=== PATIENT | male | born 1985 | race Caucasian/White ===

== ENCOUNTER 2020-11-18 02:56 | Emergency (ER) | payer OTHER, SELFPAY ==
[2020-11-18 03:25] VITALS: BP 152/103; PULSE 108; RESP 16; O2SAT 98; BMI 31.3
[2020-11-18 03:51] LABS: Basophils Percent Auto 0.4 % (0-2); Eosinophils Absolute Auto 0.2 X10*3/uL (0.0-0.4); Eosinophils Percent Auto 2.1 % (0-4); Hematocrit 44.1 % (42-52); Hemoglobin 14.5 g/dl (14.0-18.0); Imm Gran Abs Auto 0.02 X10*3/uL (0.00-0.03); Imm Gran Pct Auto 0.2 % (0.0-0.4); Lymphocytes Absolute Auto 2.5 X10*3/uL (1.2-4.9); Lymphocytes Percent Auto 29.1 % (20-40); MANUAL DIFF FLAG NO; Mean Corpuscular HGB Conc 32.9 g/dl (31.0-36.0); Mean Corpuscular Hemoglobin 28.4 pg (27.0-33.0); Mean Corpuscular Volume 86.5 fL (80-98); Mean Platelet Volume 10.3 fL (9.4-12.4); Monocytes Absolute Auto 0.7 X10*3/uL (0.1-1.2); Monocytes Percent Auto 8.7 % (2-11); Neutrophils Absolute Auto 5.1 X10*3/uL (2.0-8.3); Neutrophils Percent Auto 59.5 % (45-73); Platelet Count 257 X10*3/uL (160-400); Red Cell Distribution Width 13.5 % (11.0-16.0); White Blood Count 8.5 X10*3/uL (4.8-10.8)
[2020-11-18 04:00] VITALS: RESP 16
--- NOTE | 2020-11-18 04:56 | ED_ITS ---
HPI - General Adult General Chief complaint: Abdominal Pain Stated complaint: UPPER ABD PAIN Time Seen by Provider: 11/18/20 04:56 Source: patient Mode of arrival: ambulatory History of Present Illness HPI narrative: This is a 34-year-old male who presents with concerns regarding some observed asymmetry to his right upper quadrant when compared to the left that has not been associated with any pain, nausea, fevers, chills, diarrhea, urinary pain/burning/frequency. Patient states that he noticed it when he he placed his hand across his abdomen and felt that there was a size difference. Related Data Allergies Allergy/AdvReac Type Severity Reaction Status Date / Time pollen extracts [POLLEN] Allergy Unknown STUFFY NOSE Unverified 08/05/20 17:18 SEAFOOD Allergy Unknown THROAT Uncoded 08/05/20 17:18 ITCHY - DIFF BREATHING Review of Systems Review of Systems: Pertinent positives and negatives as stated in HPI 10 point review systems is otherwise negative. PMFSH Past Medical History Source: nursing notes reviewed Medical History No known health problems Surgical History H/O oral surgery Social History Social History Alcohol intake: never Smoking Status: Never smoker Use of substances other than those prescribed or required for medical reasons: No Advance Directives: No Physical Exam Vital Signs: Vital Signs: Last Vital Signs Pulse 108 H 11/18/20 03:25 Resp 16 11/18/20 04:00 BP 152/103 H 11/18/20 03:25 Pulse Ox 98 11/18/20 03:25 Body Mass Index 31.3 VITAL SIGNS: Reviewed. GENERAL: Well developed, well nourished, in no acute distress. NECK: Supple, no adenopathy LUNGS: Normal breath sounds. No adventitious sounds or accessory muscle use. SpO2<98> CARDIOVASCULAR: Regular rate and rhythm without noted murmurs, no JVD or lower extremity edema. ABDOMEN: Soft, non-tender, non-distended with bowel sounds. No noted swelling difference, and multiple attempts to elicit evidence of underlying hernia were u nsuccessful and patient exhibited no pain on palpation or with this maneuver. There is no erythema, induration, or crepitus noted in the right upper quadrant area as identified by the patient NEUROLOGIC: Alert and oriented x 4. Course Course Course Narrative: This is a 34-year-old male with history and clinical presentation without concerns for soft tissue mass. Patient is declining lab draw at this time but the Hematology the results are without acute findings. In addition, KUB was negative for any evidence obstructive pattern. All results and findings were discussed with patient at bedside. Medical Decision Making Lab Data Result diagrams: 11/18/20 03:46 11/18/20 05:48 Labs: Lab Results 11/18/20 11/18/20 Range/Units 03:46 03:46 WBC 8.5 (4.8-10.8) X10*3/uL RBC 5.10 (4.60-5.80) X10*6/uL Hgb 14.5 (14.0-18.0) g/dl Hct 44.1 (42-52) % MCV 86.5 (80-98) fL MCH 28.4 (27.0-33.0) pg MCHC 32.9 (31.0-36.0) g/dl RDW 13.5 (11.0-16.0) % Plt Count 257 (160-400) X10*3/uL MPV 10.3 (9.4-12.4) fL Immature Gran % (Auto) 0.2 (0.0-0.4) % Neut % (Auto) 59.5 (45-73) % Lymph % (Auto) 29.1 (20-40) % [place] % (Auto) 8.7 (2-11) % Eos % (Auto) 2.1 (0-4) % Baso % (Auto) 0.4 (0-2) % Lymph # (Auto) 2.5 (1.2-4.9) X10*3/uL [place] # (Auto) 0.7 (0.1-1.2) X10*3/uL Eos # (Auto) 0.2 (0.0-0.4) X10*3/uL Baso # (Auto) 0.0 (0.0-0.2) X10*3/uL Abs Immat Gran (auto) 0.02 (0.00-0.03) X10*3/uL Absolute Neuts (auto) 5.1 (2.0-8.3) X10*3/uL Absolute Nucleated RBC 0.000 (0.0-0.012) X10*3/uL Nucleated RBC % (auto) 0.0 (0.0-0.2) /100WBC Sodium Cancelled Potassium Cancelled Chloride Cancelled Carbon Dioxide Cancelled Anion Gap Cancelled BUN Cancelled Creatinine Cancelled Estim Creat Clear Calc Cancelled Estimated GFR Cancelled Random Glucose Cancelled Calcium Cancelled Total Bilirubin Cancelled Direct Bilirubin Cancelled AST Cancelled ALT Cancelled Alkaline Phosphatase Cancelled Total Protein Cancelled Albumin Cancelled Lipase Cancelled Discharge Plan Discharge Clinical Impression: Soft tissue swelling Patient Disposition: Home, Self-Care Instructions: Soft Tissue Mass (ED) Additional Instructions: Please follow-up with your primary care provider by calling the office this morning and setting up an appointment for further evaluation.
--- NOTE | 2020-11-18 05:17 | XR_ITS ---
EXAMINATION: XR ABDOMEN KUB CLINICAL INDICATION: Abdominal discomfort. Question constipation. COMPARISON: None TECHNIQUE: AP view of the abdomen. FINDINGS: There is a nonobstructive bowel gas pattern. Scattered gas and stool throughout the colon with mild stool burden. The lung bases are clear. No acute osseous abnormality. No suspicious calcification. XR/XR KUB IMPRESSION: Mild colonic stool burden.
[2020-11-18 06:21] LABS: Alanine Aminotransferase 47 U/L (0-40); Alkaline Phosphatase 58 U/L (39-117); Anion Gap 16 (12-20); Aspartate Amino Transferase 29 U/L (5-37); Bilirubin Direct 0.3 mg/dL (0.0-0.5); Bilirubin Total 0.9 mg/dL (0.0-1.0); Blood Urea Nitrogen 17 mg/dL (9-16); Calcium 9.4 mg/dL (8.4-10.2); Carbon Dioxide 23 mmol/L (22-29); Chloride 105 mmol/L (96-108); Creatinine Clr Calc Pharmacy 108.5; Estimated Glomerular Filt Rate > 60; Glucose Random 101 mg/dL (60-115); Lipase 50 U/L (8-78); Potassium 4.2 mmol/l (3.3-5.1); Sodium 140 mmol/L (135-145)
== END 2020-11-18 06:24 | disposition home or self-care (01) ==
PROVIDERS: Emergency Provider Student in an Organized Health Care Education/Training Program
DX: R10.11 Right upper quadrant pain (principal)
CPT/HCPCS: 36415; 74018; 80053; 80076; 82248; 83690; 85025; 99283; 99284

== ENCOUNTER 2021-01-05 07:59 | Outpatient (REF) | payer OTHER, SELFPAY ==
--- NOTE | ~2021-01-05 | US_ITS ---
EXAMINATION: US ABDOMEN COMPLETE CLINICAL INFORMATION: Right upper quadrant pain. Patient indicates area of swelling or lump in the subxiphoid right upper quadrant abdominal wall. COMPARISON: XR KUB1. TECHNIQUE: Real-time imaging of the abdominal viscera. FINDINGS: PANCREAS: Normal. ABDOMINAL AORTA: The proximal, mid, and distal segments are normal in caliber. INFERIOR VENA CAVA: Visualized portions are normal. LIVER: Liver echotexture is increased probably representing fatty infiltration. There are hypoechoic areas adjacent to the gallbladder and in the periportal region, characteristic location for focal fatty sparing. No other focal liver lesion is seen. The liver is normal in size and contour. There is no biliary duct dilatation. GALLBLADDER: There is a small 1 mm echogenic density in the gallbladder questionable for small gallstone or polyp. The gallbladder is normal in size. The gallbladder wall is normal. There is no pericholecystic fluid. COMMON BILE DUCT: Normal in caliber measuring 0.37 cm in diameter. RIGHT KIDNEY: Normal. No hydronephrosis. No renal calculi or focal parenchymal lesions. The kidney measures 11.0 cm in maximum dimension. LEFT KIDNEY: Normal. No hydronephrosis. No renal calculi or focal parenchymal lesions. The kidney measures 10.3 cm in maximum dimension. SPLEEN: Normal. The spleen measures 9.6 cm in maximum dimension. FREE FLUID: None. Limited evaluation of the subxiphoid abdominal wall in the right upper quadrant is unremarkable, image 96. US/US abdomen complete IMPRESSION: Echogenic liver suggestive of fatty infiltration. Question tiny 1 mm gallstone versus polyp. Otherwise unremarkable exam.
== END 2021-01-05 08:00 | disposition home or self-care (01) ==
LOC: HO.US 07:59
PROVIDERS: PCP Nurse Practitioner Family; Visit Provider Nurse Practitioner Family
DX: R10.11 Right upper quadrant pain (principal)
CPT/HCPCS: 76700

== ENCOUNTER 2021-09-03 11:18 | Emergency (ER) | payer OTHER, SELFPAY ==
[2021-09-03 11:59] VITALS: BP 125/93; PULSE 63; RESP 18; TEMP 36.4; O2SAT 99; BMI 29.7
--- NOTE | 2021-09-03 12:44 | ED_ITS ---
HPI - Dental/Oral General Chief complaint: Dental/Oral Stated complaint: DENTAL PAIN Time Seen by Provider: 09/03/21 12:27 Source: patient Mode of arrival: ambulatory History of Present Illness HPI Narrative: 35-year-old male with a past medical history of right lower cracked molar presenting to the ED complaining of suspected infection with pain x1 week noted to area. Admits has a dental appointment on 09/21 however pain is persistent/unbearable. Reports pain radiates to right ear/right neck. Denies intraoral swelling, pus drainage, fever, chills, drooling, inability to swallow/difficulty swallowing Related Data Home Medications Medication Instructions Recorded Confirmed buprenorphine 4 mg-naloxone 1 mg 1 film SUBLINGUAL TID ea 12/13/20 sublingual film (Suboxone) ibuprofen 600 mg tablet 600 mg PO ONCE PRN tab 12/13/20 Previous Rx's Medication Instructions Recorded amoxicillin 875 mg-potassium 1 tab PO Q12H 7 Days #14 tab 09/03/21 clavulanate 125 mg tablet (Augmentin) ibuprofen 800 mg tablet 800 mg PO Q8H PRN #20 tab 09/03/21 Allergies Allergy/AdvReac Type Severity Reaction Status Date / Time pollen extracts [POLLEN] Allergy Unknown STUFFY NOSE Unverified 08/05/20 17:18 SEAFOOD Allergy Unknown THROAT Uncoded 08/05/20 17:18 ITCHY - DIFF BREATHING Review of Systems Review of Systems: Constitutional: No Weight loss, No Fever, No Chills ENT/Mouth: No Ear Pain, No Hoarseness, No sore throat, No Swallowing Difficulty, +dental pain Cardiovascular: No Chest Pain, No SOB Respiratory: No Cough Gastrointestinal: No Nausea, No Vomiting, No Diarrhea, No Constipation, No Abdominal pain Genitourinary: No Dysuria, No Urinary Frequency, No Hematuria, No Flank Pain Musculoskeletal: No joint pain, No Myalgias, No Joint Swelling Skin: No Skin Lesions, No rash Neuro: No Weakness, No Numbness, No Paresthesias PMFSH Past Medical History Attestation statement: The following information was validated with the patient. Medical History (Updated 09/03/21 @ 12:45 by NELLIE Orr) No known health problems Right upper quadrant pain Surgical History H/O oral surgery Hx of excision of epidermal inclusion cyst Family History Family History Father No problems noted. Mother No problems noted. Social History Social History Alcohol intake: never Advance Directives: No Advance Directives Information Provided: No Physical Exam Vital Signs: Vital Signs: Last Vital Signs Temp 97.5 F 09/03/21 11:59 Pulse 63 09/03/21 11:59 Resp 18 09/03/21 11:59 BP 125/93 H 09/03/21 11:59 Pulse Ox 99 09/03/21 11:59 Body Mass Index 29.7 Const: General: cooperative, healthy appearing and no acute distress Orientation/consciousness: patient oriented x3 Limitations: no limitations HENMT: Other: Right posterior molar cracked with surrounding gingivitis. No fluctuance/induration or evidence of abscess. Head: Yes normal to inspection Ears: hearing grossly normal bilaterally, external ears normal and TM's normal bilaterally General nose exam: Normal external nose present Face and sinus: Yes normal facial exam Mouth: Normal oral and palatal mucosa present Teeth and gingiva: poor dentition Throat: Yes posterior oropharynx normal, Yes tonsils normal and Yes uvula midline Eyes: General: appearance normal, both eyes and all related structures EOM: EOMs intact bilaterally Neck: Neck: Yes normal visual inspection Resp: Effort & Inspection: normal respiratory effort and no respiratory dist ress Cardio: Rate: regular rate Heart sounds: S1 normal heart sound present and S2 normal heart sound present Skin: Rashes: no rashes Wounds: no wounds Neuro: General: patient oriented x3 Gait exam (Neuro): Normal gait present Extrem: General: Yes normal to inspection MDM - Dental/Oral MDM Narrative Medical decision making narrative: 35-year-old male with a past medical history of right lower cracked molar presenting to the ED complaining of suspected infection with pain x1 week noted to area. On exam VSS, NAD, physical exam as above. No evidence of dental abscess. Medical Records Attestation: I reviewed the patient's medical records. Lab Data Attestation: I reviewed the patient's lab results. Discharge Plan Discharge Clinical Impression: Fracture of tooth Qualifiers: Encounter type: initial encounter Fracture type: closed Qualified Code(s): S02.5XXA - Fracture of tooth (traumatic), initial encounter for closed fracture Patient Disposition: Home, Self-Care Instructions: Toothache (ED) Additional Instructions: Augmentin is an antibiotic, take as prescribed. In addition take ibuprofen and Tylenol at home If her pain persist or worsen/becomes unbearable please return to the ED Please follow-up with her dentist as scheduled Prescriptions: New amoxicillin-pot clavulanate [Augmentin] 875-125 mg tablet 1 tab PO Q12H 7 Days Qty: 14 RF: 0 ibuprofen 800 mg tablet 800 mg PO Q8H PRN (Reason: pain) Qty: 20 RF: 0
== END 2021-09-03 12:52 | disposition home or self-care (01) ==
PROVIDERS: Emergency Provider Emergency Medicine; PCP Internal Medicine
DX: S02.5XXA Fracture of tooth (traumatic), initial encounter for closed fracture (principal); X58.XXXA Exposure to other specified factors, initial encounter; Y93.9 Activity, unspecified; Y92.9 Unspecified place or not applicable; Y99.9 Unspecified external cause status
CPT/HCPCS: 99283

== ENCOUNTER 2024-04-20 19:02 | Emergency (ER) | payer OTHER, SELFPAY ==
--- NOTE | ~2024-04-20 | XR_ITS ---
EXAMINATION: XR FOOT, RIGHT CLINICAL INFORMATION: Fifth toe pain COMPARISON: None available. TECHNIQUE: AP, lateral, and oblique views of the right foot. FINDINGS: Osseous alignment is anatomic. No acute fracture is seen. Soft tissue swelling along the dorsum of the foot. XR/XR foot RT 2V IMPRESSION: Dorsal soft tissue swelling. No acute osseous findings.
[2024-04-20 19:38] VITALS: BP 148/104; PULSE 110; RESP 20; TEMP 36.9; O2SAT 99; BMI 32.6
[2024-04-20 21:27] LABS: MANUAL DIFF FLAG NO
[2024-04-20 21:28] LABS: Basophils Percent Auto 0.3 % (0-2); Eosinophils Absolute Auto 0.2 X10*3/uL (0.0-0.4); Eosinophils Percent Auto 1.7 % (0-4); Hematocrit 43.6 % (42.0-52.0); Hemoglobin 14.3 g/dl (14.0-18.0); Imm Gran Abs Auto 0.02 X10*3/uL (0.00-0.03); Imm Gran Pct Auto 0.2 % (0.0-0.4); Lymphocytes Absolute Auto 2.7 X10*3/uL (1.2-4.9); Lymphocytes Percent Auto 27.1 % (20-40); Mean Corpuscular HGB Conc 32.8 g/dl (31.0-36.0); Mean Corpuscular Volume 85.5 fL (80.0-98.0); Mean Platelet Volume 10.2 fL (9.4-12.4); Monocytes Absolute Auto 0.8 X10*3/uL (0.1-1.2); Monocytes Percent Auto 8.1 % (2-11); Neutrophils Absolute Auto 6.3 x10*3/uL (2.0-8.3); Neutrophils Percent Auto 62.6 % (45-73); Platelet Count 291 X10*3/uL (160-400); Red Cell Distribution Width 14.5 % (11.0-16.0); White Blood Count 10.1 X10*3/uL (4.8-10.8)
[2024-04-20 21:56] LABS: Alanine Aminotransferase 43 U/L (0-40); Albumin Level 4.6 g/dL (3.5-5.0); Alkaline Phosphatase 86 U/L (39-117); Anion Gap 16 (12-20); Aspartate Amino Transferase 23 U/L (5-37); Bilirubin Total 0.5 mg/dL (0.0-1.0); Blood Urea Nitrogen 11 mg/dL (9-16); Calcium 9.7 mg/dL (8.4-10.2); Carbon Dioxide 24 mmol/L (22-29); Chloride 107 mmol/L (96-108); Estimated Glomerular Filt Rate > 60; Glucose Random 99 mg/dL (60-115); Potassium 3.9 mmol/L (3.3-5.1); Sodium 143 mmol/L (135-145); Total Protein 7.8 g/dL (6.5-8.0)
--- NOTE | 2024-04-21 01:22 | ED_ITS ---
HPI - Extremity Problem General Chief complaint: Extremity Problem Stated complaint: R foot swelling Time Seen by Provider: 04/21/24 01:21 Source: patient Mode of arrival: ambulatory Limitations: no limitations History of Present Illness ED Provider: everett CAN Narrative: Patient complaining of pain in the right 5th toe with swelling of the dorsum of the foot for last 4 days does not remember exactly what happened but was kneeling down for some time and noticed pain in the right 5th toe with gradual increase in the swelling and pain no fever no chills no blunt trauma Related Data Home Medications ?Medication ?Instructions ?Recorded ?Confirmed buprenorphine 4 mg-naloxone 1 mg 0.25 film sublingual DAILY 08/02/22 08/02/22 sublingual film (Suboxone) Previous Rx's ?Medication ?Instructions ?Recorded cephalexin 500 mg capsule 500 mg PO QID 10 days #40 caps 04/21/24 doxycycline hyclate 100 mg tablet 100 mg PO BID #20 tabs 04/21/24 ibuprofen 600 mg tablet 600 mg PO Q6H PRN fever or pain 04/21/24 #30 tabs Allergies Allergy/AdvReac Type Severity Reaction Status Date / Time pollen extracts [POLLEN] Allergy Unknown STUFFY NOSE Verified 04/20/24 19:41 SEAFOOD Allergy Unknown THROAT Uncoded 08/02/22 11:43 ITCHY - DIFF BREATHING Review of Systems 2 Review of Systems: Yes all other systems are reviewed and are negative PMF Past Medical History Medical History Lumbar disc herniation with myelopathy Fatty liver Surgical History H/O: knee surgery Hx of excision of epidermal inclusion cyst H/O oral surgery Family History Family History Father No problems noted. Mother CVA (cerebral vascular accident) Maternal Grandfather CVA (cerebral vascular accident) Maternal Grandmother CVA (cerebral vascular accident) Maternal Aunt Breast cancer Social History Social History Housing: Apartment Alcohol intake: never Patient Tobacco Use Status: Current everyday Tobacco user Tobacco use type: Cigarette Cigarette Packs Per Day: 1 Smoked in Last 30 Days: Yes e-Cigarette/Vaping Use: Never Used Second Hand Smoke Exposure: Yes Use of substances other than those prescribed or required for medical reasons: Yes Substance Use Type: Marijuana Substance Use Frequency: Chronic Longstanding Advance Directives: No Advance Directives Information Provided: No Do you have a plan to hurt others: No Plan Cognitive needs: No Hearing needs: No Vision needs: No Physical Exam 2 Vital Signs: Vital Signs: Last Vital Signs Temp 98.2 F 04/21/24 01:28 Pulse 95 04/21/24 01:28 Resp 18 04/21/24 01:28 BP 146/105 H 04/21/24 01:28 Pulse Ox 100 04/21/24 01:28 O2 Del Method Room Air 04/20/24 19:38 BMI result Body Mass Index 32.6 Extrem: Ankle/foot/toe images: 1. Soft tissue tenderness right 5th toe with local warmth no bony tenderness no open wound Medical Decision Making Medical Decision Making [facility] Narrative: Patient clinically with cellulitis of the right 5th toe but patient is very tender to touch will do x-ray to rule out bony erosion X-ray of right foot negative for bony involvement Lab Data [facility] Lab Attestation statement: I reviewed the patient's lab results. 04/20/24 21:22 04/20/24 21:22 Labs: Lab Results 04/20/24 Range/Units 21:22 WBC 10.1 (4.8-10.8) X10*3/uL RBC 5.10 (4.60-5.80) X10*6/uL Hgb 14.3 (14.0-18.0) g/dl Hct 43.6 (42.0-52.0) % MCV 85.5 (80.0-98.0) fL MCH 28.0 (27.0-33.0) pg MCHC 32.8 (31.0-36.0) g/dl RDW 14.5 (11.0-16.0) % Plt Count 291 (160-400) X10*3/uL MPV 10.2 (9.4-12.4) fL Immature Gran % (Auto) 0.2 (0.0-0.4) % Neut % (Auto) 62.6 (45-73) % Lymph % (Auto) 27.1 (20-40) % [place] % (Auto) 8.1 (2-11) % Eos % (Auto) 1.7 (0-4) % Baso % (Auto) 0.3 (0-2) % Lymph # (Auto) 2.7 (1.2-4.9) X10*3/uL [place] # (Auto) 0.8 (0.1-1.2) X10*3/uL Eos # (Auto) 0.2 (0.0-0.4) X10*3/uL Baso # (Auto) 0.0 (0.0-0.2) X10*3/uL Abs Immat Gran (auto) 0.02 (0.00-0.03) X10*3/uL Absolute Neuts (auto) 6.3 (2.0-8.3) x10*3/uL Absolute Nucleated RBC 0.000 (0.0-0.012) X10*3/uL Nucleated RBC % (auto) 0.0 (0.0-0.2) /100WBC Sodium 143 (135-145) mmol/L Potassium 3.9 (3.3-5.1) mmol/L Chloride 107 (96-108) mmol/L Carbon Dioxide 24 (22-29) mmol/L Anion Gap 16 (12-20) BUN 11 (9-16) mg/dL Creatinine 0.80 (0.5-1.4) mg/dL Estim Creat Clear Calc 137.0 Estimated GFR > 60 Random Glucose 99 (60-115) mg/dL Calcium 9.7 (8.4-10.2) mg/dL Total Bilirubin 0.5 (0.0-1.0) mg/dL AST 23 (5-37) U/L ALT 43 H (0-40) U/L Alkaline Phosphatase 86 (39-117) U/L Total Protein 7.8 (6.5-8.0) g/dL Albumin 4.6 (3.5-5.0) g/dL Independent Interpretation I performed an independent interpretation of an: Plain X-Ray Radiology Impression Discussion of test interpretation with radiology: I have reviewed the radiologist's reading. Discharge Plan Discharge Clinical Impression: Cellulitis of fifth toe of right foot Patient Disposition: Home, Self-Care Instructions: Cellulitis (ED) Additional Instructions: Take antibiotic as prescribed Ibuprofen for pain Report to the ER/PCP if worsening of the swelling or redness of the right 5th toe Prescriptions: New cephalexin 500 mg capsule 500 mg PO QID 10 Days Qty: 40 0RF ibuprofen 600 mg tablet 600 mg PO Q6H PRN (Reason: fever or pain) Qty: 30 0RF doxycycline hyclate 100 mg tablet 100 mg PO BID Qty: 20 0RF No Action buprenorphine-naloxone [Suboxone] 4-1 mg film 0.25 film sublingual DAILY Patient Comments: clean [employer] Print Language: [place]
[2024-04-21 01:28] VITALS: BP 146/105; PULSE 95; RESP 18; TEMP 36.8; O2SAT 100
[2024-04-21] MEDS: cephALEXin 500 MG CAPSULE PO (01:50)
[2024-04-21] MEDS: Ibuprofen 600 MG TABLET PO (01:51)
[2024-04-21] MEDS: Doxycycline Monohydrate 100 MG CAPSULE PO (01:51)
[2024-04-21 02:06] VITALS: BP 138/98; PULSE 88; RESP 18; TEMP 36.7; O2SAT 100
== END 2024-04-21 02:07 | disposition home or self-care (01) ==
PROVIDERS: Emergency Provider Internal Medicine
DX: L03.031 Cellulitis of right toe (principal); M79.671 Pain in right foot
CPT/HCPCS: 36415; 73620; 80053; 85025; 99283; 99284

== ENCOUNTER 2024-06-01 18:49 | Emergency (ER) | payer OTHER, SELFPAY ==
[2024-06-01 18:53] VITALS: BP 152/108; PULSE 78; RESP 18; TEMP 36.7; O2SAT 98; BMI 31.5
[2024-06-01 19:11] LABS: MANUAL DIFF FLAG NO
[2024-06-01 19:24] LABS: Basophils Percent Auto 0.4 % (0-2); Eosinophils Absolute Auto 0.2 X10*3/uL (0.0-0.4); Hematocrit 42.2 % (42.0-52.0); Imm Gran Abs Auto 0.02 X10*3/uL (0.00-0.03); Imm Gran Pct Auto 0.2 % (0.0-0.4); Lymphocytes Absolute Auto 2.7 X10*3/uL (1.2-4.9); Lymphocytes Percent Auto 26.4 % (20-40); Mean Corpuscular HGB Conc 33.2 g/dl (31.0-36.0); Mean Corpuscular Hemoglobin 28.1 pg (27.0-33.0); Mean Corpuscular Volume 84.6 fL (80.0-98.0); Mean Platelet Volume 10.4 fL (9.4-12.4); Monocytes Absolute Auto 0.7 X10*3/uL (0.1-1.2); Neutrophils Absolute Auto 6.6 x10*3/uL (2.0-8.3); Platelet Count 260 X10*3/uL (160-400); Red Blood Count 4.99 X10*6/uL (4.60-5.80); Red Cell Distribution Width 14.6 % (11.0-16.0); White Blood Count 10.3 X10*3/uL (4.8-10.8)
[2024-06-01 19:38] LABS: Alanine Aminotransferase 38 U/L (0-40); Albumin Level 4.6 g/dL (3.5-5.0); Alkaline Phosphatase 87 U/L (39-117); Anion Gap 14 (12-20); Aspartate Amino Transferase 22 U/L (5-37); Bilirubin Total 0.4 mg/dL (0.0-1.0); Blood Urea Nitrogen 9 mg/dL (9-16); Calcium 9.9 mg/dL (8.4-10.2); Carbon Dioxide 25 mmol/L (22-29); Chloride 109 mmol/L (96-108); Creatinine Clr Calc Pharmacy 121.1; Estimated Glomerular Filt Rate > 60; Glucose Random 97 mg/dL (60-115); Potassium 4.4 mmol/L (3.3-5.1); Sodium 144 mmol/L (135-145); Total Protein 7.7 g/dL (6.5-8.0)
--- NOTE | 2024-06-01 21:32 | ED.EXTPRO ---
HPI - Extremity Problem General Chief complaint: Extremity Problem Stated complaint: ?R foot infection Time Seen by Provider: 06/01/24 21:25 Source: patient Mode of arrival: ambulatory Limitations: no limitations History of Present Illness ED Provider: Dr. Mari Mittal HPI Narrative: Patient comes to the emergency room complaining of pain and swelling on the right side of the foot between the 4th and 5th toes and the dorsum of the foot. Patient states that approximately a month ago, on April 21, patient was diagnosed with cellulitis of the same area of the foot, patient was given cephalexin and doxycycline and worked well for him. Patient states that [place] he was in a [place], believes he got injured [place], denies any puncture wounds, states that since yesterday his foot has been calm red and swollen in the same area. Patient denies fever or chills Related Data Home Medications ?Medication ?Instructions ?Recorded ?Confirmed buprenorphine 4 mg-naloxone 1 mg 0.25 film sublingual DAILY 08/02/22 08/02/22 sublingual film (Suboxone) Previous Rx's ?Medication ?Instructions ?Recorded cephalexin 500 mg capsule 500 mg PO QID 10 days #40 caps 04/21/24 doxycycline hyclate 100 mg tablet 100 mg PO BID #20 tabs 04/21/24 ibuprofen 600 mg tablet 600 mg PO Q6H PRN fever or pain 04/21/24 #30 tabs sulfamethoxazole 800 1 tab PO BID #19 tabs 06/01/24 mg-trimethoprim 160 mg tablet (Bactrim DS) Allergies Allergy/AdvReac Type Severity Reaction Status Date / Time pollen extracts [POLLEN] Allergy Unknown STUFFY NOSE Verified 06/01/24 18:58 SEAFOOD Allergy Unknown THROAT Uncoded 06/01/24 18:58 ITCHY - DIFF BREATHING Review of Systems Review of Systems: Constitutional : No Weight loss, No Fever, No Chills, No Night Sweats, No Fatigue, No Malaise ENT/Mouth : No Hearing loss, No Ear Pain, No Nasal Congestion, No Sinus Pain, No Hoarseness, No sore throat, No Rhinorrhea, No Swallowing Difficulty Eyes: No Eye Pain, No Swelling, No Redness, No Foreign Body, No Discharge, No Vision Changes Cardiovascular : No Chest Pain, No SOB, No Dyspnea on Exertion, No Orthopnea, No Edema, No Palpitations Respiratory : No Cough, No Sputum, No Wheezing, No Smoke Exposure, No Dyspnea Gastrointestinal : No Nausea, No Vomiting, No Diarrhea, No Constipation, No abdominal Pain, No Hematochezia, No Melena Genitourinary : no irregular bleeding, No Dysuria, No Urinary Frequency, No Hematuria, No Urinary Incontinence, No Urgency, No Flank Pain, No Urinary Flow Changes, No Hesitancy Musculoskeletal : No joint pain, No Myalgias, No Joint Swelling Skin : Cellulitis of the right foot Neuro : No Weakness, No Numbness, No Paresthesias, No Loss of Consciousness, No Dizziness, No Headache Psych : No Anxiety/Panic, No Depression, No SI/HI/AH/VH, No Social Issues, Heme/Lymph: No Bruising, No Bleeding,No Lymphadenopathy Endocrine : No Polyuria, No Polydipsia, No Temperature Intolerance [facility] Past Medical History Medical History Lumbar disc herniation with myelopathy Fatty liver Surgical History H/O: knee surgery Hx of excision of epidermal inclusion cyst H/O oral surgery Family History Family History Father No problems noted. Mother CVA (cerebral vascular accident) Maternal Grandfather CVA (cerebral vascular accident) Maternal Grandmother CVA (cerebral vascular accident) Maternal Aunt Breast cancer Social History Social History Housing: Apartment Alcohol intake: never Patient Tobacco Use Status: Current everyday Tobacco user Tobacco use type: Cigarette Cigarette Packs Per Day: 1 e-Cigarette/Vaping Use: Never Used Second Hand Smoke Exposure: Yes Substance Use Type: Marijuana Advance Directives: No Advance Directives Information Provided: No Cognitive needs: No Hearing needs: No Vision needs: No Physical Exam Vital Signs: Vital Signs: Last Vital Signs Temp 98.0 F 06/01/24 18:53 Pulse 78 06/01/24 18:53 Resp 18 06/01/24 18:53 BP 152/108 H 06/01/24 18:53 Pulse Ox 98 06/01/24 18:53 O2 Del Method Room Air 06/01/24 18:53 BMI result Body Mass Index 31.5 Const: Other: Appearance: Alert. Oriented X3. No acute distress. Eyes: Pupils equal, round and reactive to light. ENT: Pharynx normal. Neck: Normal inspection. Neck supple. No lymph nodes noted. No crepitus CVS: Normal heart rate and rhythm. Pulses normal. Normal S1 and S2 Respiratory: No respiratory distress. Breath sounds normal. No Wheezing. No rales Abdomen: Soft and nontender. No rigidity. No distention. Skin: Skin warm and dry. Normal skin color. Normal skin turgor. Extremities: Patient's right foot on the dorsum there is erythema, slight swelling, no ulcers between the 4th and 5th toes, mild additional warmth to palpation than the rest of the foot , no puncture wounds or abrasions, no ulcers Neuro: Oriented X 3. No motor deficit. No sensory deficit. Moving all extremities. No slurred speech. CN 2 through 12 grossly intact Psych: calm, cooperative, normal affect Medical Decision Making Medical Decision Making [facility] Narrative: -my interpretation of labs: Patient's hematology and chemistry are unremarkable -patient does have cellulitis of the foot, given the 1st dose of Bactrim in the ED. -discussed with the patient that his have any improvement within the next 48 hours or worsening symptoms at any time, to return to emergency room. -patient's vitals stable, no fever, not tachycardic, not hypotensive, sepsis not suspected Lab Data [facility] Lab Attestation statement: I reviewed the patient's lab results. 06/01/24 19:04 06/01/24 19:04 Labs: Lab Results 06/01/24 Range/Units 19:04 WBC 10.3 (4.8-10.8) X10*3/uL RBC 4.99 (4.60-5.80) X10*6/uL Hgb 14.0 (14.0-18.0) g/dl Hct 42.2 (42.0-52.0) % MCV 84.6 (80.0-98.0) fL MCH 28.1 (27.0-33.0) pg MCHC 33.2 (31.0-36.0) g/dl RDW 14.6 (11.0-16.0) % Plt Count 260 (160-400) X10*3/uL MPV 10.4 (9.4-12.4) fL Immature Gran % (Auto) 0.2 (0.0-0.4) % Neut % (Auto) 64.0 (45-73) % Lymph % (Auto) 26.4 (20-40) % [place] % (Auto) 7.0 (2-11) % Eos % (Auto) 2.0 (0-4) % Baso % (Auto) 0.4 (0-2) % Lymph # (Auto) 2.7 (1.2-4.9) X10*3/uL [place] # (Auto) 0.7 (0.1-1.2) X10*3/uL Eos # (Auto) 0.2 (0.0-0.4) X10*3/uL Baso # (Auto) 0.0 (0.0-0.2) X10*3/uL Abs Immat Gran (auto) 0.02 (0.00-0.03) X10*3/uL Absolute Neuts (auto) 6.6 (2.0-8.3) x10*3/uL Absolute Nucleated RBC 0.000 (0.0-0.012) X10*3/uL Nucleated RBC % (auto) 0.0 (0.0-0.2) /100WBC Sodium 144 (135-145) mmol/L Potassium 4.4 (3.3-5.1) mmol/L Chloride 109 H (96-108) mmol/L Carbon Dioxide 25 (22-29) mmol/L Anion Gap 14 (12-20) BUN 9 (9-16) mg/dL Creatinine 0.89 (0.5-1.4) mg/dL Estim Creat Clear Calc 121.1 Estimated GFR > 60 Random Glucose 97 (60-115) mg/dL Calcium 9.9 (8.4-10.2) mg/dL Total Bilirubin 0.4 (0.0-1.0) mg/dL AST 22 (5-37) U/L ALT 38 (0-40) U/L Alkaline Phosphatase 87 (39-117) U/L Total Protein 7.7 (6.5-8.0) g/dL Albumin 4.6 (3.5-5.0) g/dL Discharge Plan Discharge Clinical Impression: Cellulitis Patient Disposition: Home, Self-Care Instructions: Cellulitis (ED) Additional Instructions: Please follow-up with your primary care physician tomorrow. If you have any worsening or new symptoms, please return to the emergency room or call 911 Prescriptions: New sulfamethoxazole-trimethoprim [Bactrim DS] 800-160 mg tablet 1 tab PO BID Qty: 19 0RF No Action cephalexin 500 mg capsule 500 mg PO QID 10 Days Qty: 40 0RF ibuprofen 600 mg tablet 600 mg PO Q6H PRN (Reason: fever or pain) Qty: 30 0RF doxycycline hyclate 100 mg tablet 100 mg PO BID Qty: 20 0RF buprenorphine-naloxone [Suboxone] 4-1 mg film 0.25 film sublingual DAILY Patient Comments: clean Slate Print Language: [place]
[2024-06-01] MEDS: Sulfamethox/Trimeth 800/160 TABLET 1 TAB PO (22:01)
[2024-06-01 22:12] VITALS: BP 152/108; PULSE 78; RESP 18; TEMP 36.7; O2SAT 98
== END 2024-06-01 22:04 | disposition home or self-care (01) ==
PROVIDERS: Emergency Provider Emergency Medicine
DX: L03.115 Cellulitis of right lower limb (principal); Z79.899 Other long term (current) drug therapy; F17.210 Nicotine dependence, cigarettes, uncomplicated
CPT/HCPCS: 36415; 80053; 85025; 99283; 99284

== ENCOUNTER 2024-07-16 14:51 | Emergency (ER) | payer OTHER, SELFPAY ==
--- NOTE | ~2024-07-16 | XR_ITS ---
EXAMINATION: XR FOOT, RIGHT CLINICAL INFORMATION: Foot pain. Infection COMPARISON: 04/21/2024 TECHNIQUE: AP, lateral, and oblique views of the right foot. FINDINGS: No fracture, dislocation or destructive process. There is mild persistent dorsal soft tissue swelling. No evidence for erosive change or radiopaque foreign body. XR/XR foot RT 2V IMPRESSION: The underlying osseous structures are intact. Electronically signed by: Bear Rojas MD 07/16/2024 04:43 PM EDT
--- NOTE | 2024-07-16 14:54 | ED.GENADULT ---
HPI - General Adult General Chief complaint: Extremity Injury, Lower Stated complaint: r foot infection Time Seen by Provider: 07/16/24 16:02 Source: patient Mode of arrival: ambulatory Limitations: no limitations History of Present Illness ED Provider: Dr. Mari Mittal HPI narrative: Patient comes to the emergency room complaining of pain in the dorsal aspect of the right foot. About a month ago, patient was seen here for a foot infection. Patient developed an eschar. Patient states that he accidentally scratched it today and then became concerned that it is infected. However, patient denies any fever chills, no swelling, no pus drainage. Related Data Home Medications ?Medication ?Instructions ?Recorded ?Confirmed buprenorphine 4 mg-naloxone 1 mg 0.25 film sublingual DAILY 08/02/22 08/02/22 sublingual film (Suboxone) Previous Rx's ?Medication ?Instructions ?Recorded cephalexin 500 mg capsule 500 mg PO QID 10 days #40 caps 04/21/24 doxycycline hyclate 100 mg tablet 100 mg PO BID #20 tabs 04/21/24 ibuprofen 600 mg tablet 600 mg PO Q6H PRN fever or pain 04/21/24 #30 tabs sulfamethoxazole 800 1 tab PO BID #19 tabs 06/01/24 mg-trimethoprim 160 mg tablet (Bactrim DS) bacitracin 500 unit/gram topical 1 appl topical QID #28 grams 07/16/24 ointment clotrimazole 1 % topical cream 1 appl topical TID #45 grams 07/16/24 (Lotrimin AF (clotrimazole)) Allergies Allergy/AdvReac Type Severity Reaction Status Date / Time pollen extracts [POLLEN] Allergy Unknown STUFFY NOSE Verified 07/16/24 14:58 SEAFOOD Allergy Unknown THROAT Uncoded 07/16/24 14:58 ITCHY - DIFF BREATHING Review of Systems Review of Systems: Constitutional : No Weight loss, No Fever, No Chills, No Night Sweats, No Fatigue, No Malaise ENT/Mouth : No Hearing loss, No Ear Pain, No Nasal Congestion, No Sinus Pain, No Hoarseness, No sore throat, No Rhinorrhea, No Swallowing Difficulty Eyes: No Eye Pain, No Swelling, No Redness, No Foreign Body, No Discharge, No Vision Changes Cardiovascular : No Chest Pain, No SOB, No Dyspnea on Exertion, No Orthopnea, No Edema, No Palpitations Respiratory : No Cough, No Sputum, No Wheezing, No Smoke Exposure, No Dyspnea Gastrointestinal : No Nausea, No Vomiting, No Diarrhea, No Constipation, No abdominal Pain, No Hematochezia, No Melena Genitourinary : no irregular bleeding, No Dysuria, No Urinary Frequency, No Hematuria, No Urinary Incontinence, No Urgency, No Flank Pain, No Urinary Flow Changes, No Hesitancy Musculoskeletal : No joint pain, No Myalgias, No Joint Swelling Skin : Complaining of pain in a scratched eschar on the dorsum of the right foot Neuro : No Weakness, No Numbness, No Paresthesias, No Loss of Consciousness, No Dizziness, No Headache Psych : No Anxiety/Panic, No Depression, No SI/HI/AH/VH, No Social Issues, Heme/Lymph: No Bruising, No Bleeding,No Lymphadenopathy Endocrine : No Polyuria, No Polydipsia, No Temperature Intolerance [facility] Past Medical History Medical History Lumbar disc herniation with myelopathy Fatty liver Surgical History H/O: knee surgery Hx of excision of epidermal inclusion cyst H/O oral surgery Family History Family History Father No problems noted. Mother CVA (cerebral vascular accident) Maternal Grandfather CVA (cerebral vascular accident) Maternal Grandmother CVA (cerebral vascular accident) Maternal Aunt Breast cancer Social History Social History Housing: Apartment Alcohol intake: never Patient Tobacco Use Status: Current everyday Tobacco user Tobacco use type: Cigarette Cigarette Packs Per Day: 1 e-Cigarette/Vaping Use: Never Used Second Hand Smoke Exposure: Yes Substance Use Type: Marijuana Advance Directives: No Advance Directives Information Provided: No Do you have a plan to hurt others: No Plan Cognitive needs: No Hearing needs: No Vision needs: No Physical Exam ED Vital Signs: Vital Signs - 24 hr 07/16/24 14:57 Temperature 97.8 F Pulse Rate 87 Respiratory Rate 18 Blood Pressure 135/92 H Pulse Oximetry 100 Oxygen Delivery Method Room Air BMI result Body Mass Index 31.3 Const Other: Appearance: Alert. Oriented X3. No acute distress. Eyes: Pupils equal, round and reactive to light. ENT: Pharynx normal. Neck: Normal inspection. Neck supple. No lymph nodes noted. No crepitus CVS: Normal heart rate and rhythm. Pulses normal. Normal S1 and S2 Respiratory: No respiratory distress. Breath sounds normal. No Wheezing. No rales Abdomen: Soft and nontender. No rigidity. No distention. Skin: Dorsum of the foot looks normal, no swelling, hold eschar, no bleeding, no cellulitis, no pus drainage. Patient does have athlete's foot in between all the toes Extremities: No lower extremity edema. No Lacerations. No Rash Neuro: Oriented X 3. No motor deficit. No sensory deficit. Moving all extremities. No slurred speech. CN 2 through 12 grossly intact Psych: calm, cooperative, normal affect Course Course Course Narrative: This is an RME done by NELLIE Allen: Additional HPI, ROS, PE not included below will be deferred to primary provider. 38 year old male presenting with concerns of R foot swelling and pain (06/28) since yesterday. Pt has previously visited this facility 3 times for the same complaint. Pt states he has taken antibiotics, but feels as if they did not help. Denies fevers or chills. Plan - labs, imaging Appearance: Alert.? Oriented X3.? No acute cardiopulmonary distress distress.? Head: Normocephalic, atraumatic, no step-offs or deformities Neck: Normal inspection.? Neck supple.? CVS: Pulses normal.? Respiratory: No respiratory distress.? Abdomen: Soft and nontender.? Skin: ? Normal skin color. Extremities: 5/5 strength to bilateral upper and lower extremities; + boot on R foot Neuro: Oriented X 3.? No motor deficit.? No sensory deficit. Medical Decision Making Medical Decision Making [facility] Narrative: My interpretation of labs: Normal hematology, normal chemistry -I discussed the physical exam with the patient, there were no signs of cellulitis at all -patient requesting 3 days of p.o. antibiotics. Discussed with the patient that at this time there is no indication for p.o. antibiotics. Lab Data 07/16/24 15:07 07/16/24 15:07 Labs: Lab Results 07/16/24 Range/Units 15:07 WBC 9.7 (4.8-10.8) X10*3/uL RBC 5.10 (4.60-5.80) X10*6/uL Hgb 14.3 (14.0-18.0) g/dl Hct 43.4 (42.0-52.0) % MCV 85.1 (80.0-98.0) fL MCH 28.0 (27.0-33.0) pg MCHC 32.9 (31.0-36.0) g/dl RDW 14.8 (11.0-16.0) % Plt Count 244 (160-400) X10*3/uL MPV 9.8 (9.4-12.4) fL Immature Gran % (Auto) 0.3 (0.0-0.4) % Neut % (Auto) 64.0 (45-73) % Lymph % (Auto) 27.2 (20-40) % [place] % (Auto) 6.2 (2-11) % Eos % (Auto) 2.1 (0-4) % Baso % (Auto) 0.2 (0-2) % Lymph # (Auto) 2.6 (1.2-4.9) X10*3/uL [place] # (Auto) 0.6 (0.1-1.2) X10*3/uL Eos # (Auto) 0.2 (0.0-0.4) X10*3/uL Baso # (Auto) 0.0 (0.0-0.2) X10*3/uL Abs Immat Gran (auto) 0.03 (0.00-0.03) X10*3/uL Absolute Neuts (auto) 6.2 (2.0-8.3) x10*3/uL Absolute Nucleated RBC 0.000 (0.0-0.012) X10*3/uL Nucleated RBC % (auto) 0.0 (0.0-0.2) /100WBC Sodium 143 (135-145) mmol/L Potassium 3.8 (3.3-5.1) mmol/L Chloride 109 H (96-108) mmol/L Carbon Dioxide 27 (22-29) mmol/L Anion Gap 11 L (12-20) BUN 12 (9-16) mg/dL Creatinine 0.87 (0.5-1.4) mg/dL Estim Creat Clear Calc 123.6 Estimated GFR > 60 Random Glucose 138 H (60-115) mg/dL Calcium 9.7 (8.4-10.2) mg/dL Total Bilirubin 0.7 (0.0-1.0) mg/dL AST 29 (5-37) U/L ALT 59 H (0-40) U/L Alkaline Phosphatase 77 (39-117) U/L Total Protein 7.3 (6.5-8.0) g/dL Albumin 4.3 (3.5-5.0) g/dL Discharge Plan Discharge Clinical Impression: Eschar of foot, Athlete's foot Patient Disposition: Home, Self-Care Instructions: Athlete's Foot (ED) Additional Instructions: Please follow-up with your primary care physician tomorrow. If you have any worsening or new symptoms, please return to the emergency room or call 911 Prescriptions: New bacitracin 500 unit/gram ointment 1 appl topical QID Qty: 28 0RF clotrimazole [Lotrimin AF (clotrimazole)] 1 % cream 1 appl topical TID Qty: 45 0RF No Action cephalexin 500 mg capsule 500 mg PO QID 10 Days Qty: 40 0RF ibuprofen 600 mg tablet 600 mg PO Q6H PRN (Reason: fever or pain) Qty: 30 0RF doxycycline hyclate 100 mg tablet 100 mg PO BID Qty: 20 0RF sulfamethoxazole-trimethoprim [Bactrim DS] 800-160 mg tablet 1 tab PO BID Qty: 19 0RF buprenorphine-naloxone [Suboxone] 4-1 mg film 0.25 film sublingual DAILY Patient Comments: clean Slate Print Language: [place]
[2024-07-16 14:57] VITALS: BP 135/92; PULSE 87; RESP 18; TEMP 36.6; O2SAT 100; BMI 31.3
[2024-07-16 15:11] LABS: MANUAL DIFF FLAG NO
[2024-07-16 15:12] LABS: Basophils Percent Auto 0.2 % (0-2); Eosinophils Absolute Auto 0.2 X10*3/uL (0.0-0.4); Eosinophils Percent Auto 2.1 % (0-4); Hematocrit 43.4 % (42.0-52.0); Hemoglobin 14.3 g/dl (14.0-18.0); Imm Gran Abs Auto 0.03 X10*3/uL (0.00-0.03); Imm Gran Pct Auto 0.3 % (0.0-0.4); Lymphocytes Absolute Auto 2.6 X10*3/uL (1.2-4.9); Lymphocytes Percent Auto 27.2 % (20-40); Mean Corpuscular HGB Conc 32.9 g/dl (31.0-36.0); Mean Corpuscular Volume 85.1 fL (80.0-98.0); Mean Platelet Volume 9.8 fL (9.4-12.4); Monocytes Absolute Auto 0.6 X10*3/uL (0.1-1.2); Monocytes Percent Auto 6.2 % (2-11); Neutrophils Absolute Auto 6.2 x10*3/uL (2.0-8.3); Platelet Count 244 X10*3/uL (160-400); Red Cell Distribution Width 14.8 % (11.0-16.0); White Blood Count 9.7 X10*3/uL (4.8-10.8)
[2024-07-16 15:27] LABS: Alanine Aminotransferase 59 U/L (0-40); Albumin Level 4.3 g/dL (3.5-5.0); Alkaline Phosphatase 77 U/L (39-117); Anion Gap 11 (12-20); Aspartate Amino Transferase 29 U/L (5-37); Bilirubin Total 0.7 mg/dL (0.0-1.0); Blood Urea Nitrogen 12 mg/dL (9-16); Calcium 9.7 mg/dL (8.4-10.2); Carbon Dioxide 27 mmol/L (22-29); Chloride 109 mmol/L (96-108); Creatinine Clr Calc Pharmacy 123.6; Estimated Glomerular Filt Rate > 60; Glucose Random 138 mg/dL (60-115); Potassium 3.8 mmol/L (3.3-5.1); Sodium 143 mmol/L (135-145); Total Protein 7.3 g/dL (6.5-8.0)
[2024-07-16 16:52] VITALS: BP 136/103; PULSE 66; RESP 18; TEMP 36.8; O2SAT 98
== END 2024-07-16 16:53 | disposition home or self-care (01) ==
PROVIDERS: Physician Assistant; Emergency Provider Emergency Medicine
DX: B35.3 Tinea pedis (principal); F19.10 Other psychoactive substance abuse, uncomplicated; F17.210 Nicotine dependence, cigarettes, uncomplicated; F12.90 Cannabis use, unspecified, uncomplicated; F11.20 Opioid dependence, uncomplicated; Z79.899 Other long term (current) drug therapy
CPT/HCPCS: 36415; 73620; 80053; 85025; 99282; 99283

== ENCOUNTER 2024-07-26 12:40 | Emergency (ER) | payer OTHER, SELFPAY ==
[2024-07-26 13:05] VITALS: BP 149/108; PULSE 84; RESP 16; TEMP 37; O2SAT 100; BMI 32.6
--- NOTE | 2024-07-26 13:06 | ED_ITS ---
HPI - General Adult General Chief complaint: Dental/Oral Stated complaint: Dental pain Time Seen by Provider: 07/26/24 13:08 Source: patient Mode of arrival: ambulatory Limitations: no limitations History of Present Illness ED Provider: Marcy Barajas PA-C HPI narrative: Patient is a 38 year old assigned male at with a history of fatty liver presenting to the emergency department today with left lower dental pain. Patient states that he has an appointment with his dentist in approximately 10 days. Patient states that his left lower mouth is very swollen and his left lower teeth are painful. Patient states that he attempted to call his dentist to get antibiotics but they wouldn't give him any. Patient denies any dizziness, lightheadedness, abdominal pain, nausea, vomiting, fever, chills, blurry vision, double vision, loss of vision, chest pain, difficulty breathing, shortness of breath, back pain, night sweats, pain with urination, increased urinary frequency, increased urinary urgency, blood in his urine or stool, syncope or a near syncopal episode, recent trauma or falls, bowel incontinence, bladder incontinence, or any other complaints at this time. Relieving factors: none Exacerbating factors: none Associated symptoms: denies other symptoms Treatments prior to arrival: none Related Data Home Medications ?Medication ?Instructions ?Recorded ?Confirmed buprenorphine 4 mg-naloxone 1 mg 0.25 film sublingual DAILY 08/02/22 08/02/22 sublingual film (Suboxone) Previous Rx's ?Medication ?Instructions ?Recorded cephalexin 500 mg capsule 500 mg PO QID 10 days #40 caps 04/21/24 doxycycline hyclate 100 mg tablet 100 mg PO BID #20 tabs 04/21/24 ibuprofen 600 mg tablet 600 mg PO Q6H PRN fever or pain 04/21/24 #30 tabs sulfamethoxazole 800 1 tab PO BID #19 tabs 06/01/24 mg-trimethoprim 160 mg tablet (Bactrim DS) bacitracin 500 unit/gram topical 1 appl topical QID #28 grams 07/16/24 ointment clotrimazole 1 % topical cream 1 appl topical TID #45 grams 07/16/24 (Lotrimin AF (clotrimazole)) chlorhexidine gluconate 0.12 % 15 ml buccal BID #118 mL 07/26/24 mouthwash (Peridex) penicillin V potassium 500 mg 500 mg PO BID 10 days #20 tabs 07/26/24 tablet Allergies Allergy/AdvReac Type Severity Reaction Status Date / Time pollen extracts [POLLEN] Allergy Unknown STUFFY NOSE Verified 07/26/24 13:07 SEAFOOD Allergy Unknown THROAT Uncoded 07/16/24 14:58 ITCHY - DIFF BREATHING Review of Systems 2 Constitutional: Constitutional: Reports no additional constitutional complaints, Denies chills, Denies fever(s) and Denies night sweats Eyes: Eyes: Reports no additional eye complaints, Denies blurry vision, Denies change in vision, Denies diplopia, Denies eye discharge, Denies loss of vision and Denies eye pain ENT: Denies dizziness Comments: left lower dental pain / swelling Cardiovascular: Cardiovascular: Reports no additional cardiovascular complaints, Denies chest pain, Denies lightheadedness, Denies Loss of Consciousness and Denies dyspnea Respiratory: Respiratory: Reports no additional respiratory complaints and Denies dyspnea Gastrointestinal: Gastrointestinal: Reports no additional gastrointestinal complaints, Denies abdominal pain, Denies melena, Denies hematochezia, Denies change in bowel habits and Denies change in stool character Genitourinary: Genitourinary: Reports no additional male genitourinary complaints, Denies hematuria, Denies oliguria, Denies difficulty urinating, Denies dysuria, Denies urinary frequency, Denies urinary hesitancy, Denies urinary incontinence and Denies urinary urgency Musculoskeletal: Musculoskeletal: Reports no additional musculoskeletal complaints, Denies numbness and Denies tingling Neurologic: Denies dizziness, Denies loss of vision, Denies numbness and Denies tingling Psychiatric: Psychiatric: Reports no additional psychiatric complaints Endocrine: Endocrine: Reports no additional endocrine complaints Hematologic/Lymphatic: Hematologic/Lymphatic: Reports no additional hematologic/lymphatic complaints Allergic/Immunologic: Allergic/Immunologic: Reports no additional allergic/immunologic complaints PMFSH Past Medical History Attestation statement: The following information was validated with the patient. Source: old records reviewed and nursing notes reviewed Medical History Lumbar disc herniation with myelopathy Fatty liver Surgical History H/O: knee surgery Hx of excision of epidermal inclusion cyst H/O oral surgery Family History Family History Father No problems noted. Mother CVA (cerebral vascular accident) Maternal Grandfather CVA (cerebral vascular accident) Maternal Grandmother CVA (cerebral vascular accident) Maternal Aunt Breast cancer Social History Social History Housing: Apartment Alcohol intake: never Patient Tobacco Use Status: Current everyday Tobacco user Tobacco use type: Cigarette Cigarette Packs Per Day: 1 e-Cigarette/Vaping Use: Never Used Second Hand Smoke Exposure: Yes Substance Use Type: Marijuana Advance Directives: No Cognitive needs: No Hearing needs: No Vision needs: No Physical Exam ED Vital Signs: Vital Signs - 24 hr 07/26/24 13:05 07/26/24 13:09 Temperature 98.6 F 98.6 F Pulse Rate 84 84 Respiratory Rate 16 16 Blood Pressure 149/108 H 149/108 H Pulse Oximetry 100 100 Oxygen Delivery Method Room Air Room Air BMI result Body Mass Index 32.6 Const General: cooperative, no acute distress, alert and awake Nutritional Appearance: well nourished Orientation/consciousness: patient oriented x3 Limitations: no limitations HENMT Head: Yes normal to inspection and Yes atraumatic Ears: hearing grossly normal bilaterally and external ears normal General nose exam: Normal external nose present, no nasal discharge noted and no epistaxis Face and sinus: Yes normal facial exam, No abrasion and No laceration Mouth: Normal oral and palatal mucosa present, no drooling and no muffled voice Teeth and gingiva: poor dentition Teeth image: 2 1. large portion of the tooth missing with surrounding swelling but no fluctuance Eyes General: appearance normal, both eyes and all related structures Periorbital: periorbital findings normal Eyelids: Yes eyelids normal Conjunctivae: conjunctivae normal Pupils: Equal, round and reactive pupils present EOM: EOMs intact bilaterally Neck Neck: Yes normal visual inspection, Yes full ROM and Yes no lymphadenopathy Chest Chest palpation & inspection: normal inspection of the chest Resp Effort & Inspection: normal respiratory effort and able to speak in complete sentences GI Inspection: Yes normal to inspection Neuro General: patient oriented x3 and moves all extremities Cranial nerves: Yes Equal, round and reactive pupils present Cognition (Neuro): normal cognition Extrem General: Yes normal to inspection, Yes full ROM and Yes capillary refill normal Psych Appearance: grossly normal Mental Status: mental status grossly normal Affect: normal affect Attitude: cooperative Thought process: Normal thought process present Thought content: Normal thought content present Insight: Good insight present (Psych) Medical Decision Making Medical Decision Making MDM Narrative: Patient is a 38 year old assigned male at with a history of fatty liver presenting to the emergency department today with left sided facial swelling and left lower dental pain. Patient's physical exam was as noted in the physical exam portion of this note. I explained my physical exam findings to the patient. I answered all questions asked by the patient. I stressed the importance of the patient taking his medication as directed (either prescribed or as the over the counter packaging recommends). I stressed the importance of the patient following up with his primary care provider and his dentist as scheduled. I stressed the importance of the patient returning to the emergency department immediately if his symptoms were to worsen or if he were to develop any dizziness, shortness of breath, difficulty breathing, chest pain, blurry vision, loss of vision, nausea, vomiting, abdominal pain, fever, chills, back pain, or any other complaints. Patient verbalized agreement and understanding with this treatment plan and discharge. Differential Diagnosis Differential Diagnoses: The differential diagnosis associated with the presentation includes Dental infection Dental abscess Admission/Observation Consideration of admission/observation: Escalation of care including admission/observation considered Patient would have been admitted to the hospital had his clinical presentation warranted hospital admission. Prescription Management I considered prescription management with: Antibiotic (patient prescribed an antibiotic for left lower dental infection) Discharge Plan Discharge Clinical Impression: Dental infection Patient Disposition: Home, Self-Care Instructions: Dental Abscess (ED) Additional Instructions: Follow up with your primary care provider and your dentist. Return to the emergency department immediately if your symptoms worsen or if you develop any dizziness, shortness of breath, difficulty breathing, chest pain, blurry vision, loss of vision, nausea, vomiting, abdominal pain, fever, chills, back pain, or any other complaints. Prescriptions: New penicillin V potassium 500 mg tablet 500 mg PO BID 10 Days Qty: 20 0RF chlorhexidine gluconate [Peridex] 0.12 % mouthwash 15 ml buccal BID Qty: 118 0RF No Action cephalexin 500 mg capsule 500 mg PO QID 10 Days Qty: 40 0RF ibuprofen 600 mg tablet 600 mg PO Q6H PRN (Reason: fever or pain) Qty: 30 0RF doxycycline hyclate 100 mg tablet 100 mg PO BID Qty: 20 0RF sulfamethoxazole-trimethoprim [Bactrim DS] 800-160 mg tablet 1 tab PO BID Qty: 19 0RF bacitracin 500 unit/gram ointment 1 appl topical QID Qty: 28 0RF clotrimazole [Lotrimin AF (clotrimazole)] 1 % cream 1 appl topical TID Qty: 45 0RF buprenorphine-naloxone [Suboxone] 4-1 mg film 0.25 film sublingual DAILY Patient Comments: clean Slate Referrals: [facility] [place] Family Medicine [Provider Group] (Call to establish and follow up with a primary care provider. If you already have a primary care provider, please follow up with them.) [facility] [Provider Group] (Call to establish and follow up with a primary care provider. If you already have a primary care provider, please follow up with them.) [facility] [place] Primary Care,[facility] [Provider Group] (Call to establish and follow up with a primary care provider. If you already have a primary care provider, please follow up with them.) Interventions: ED Discharge Assessment Last Done: 07/26/24 13:09 Discharge Date/Time: 07/26/24 13:21 Print Language: Danish
[2024-07-26 13:09] VITALS: BP 149/108; PULSE 84; RESP 16; TEMP 37; O2SAT 100
== END 2024-07-26 13:21 | disposition home or self-care (01) ==
LOC: HO.ED 13:11
PROVIDERS: Emergency Provider Emergency Medicine Emergency Medical Services
DX: K04.7 Periapical abscess without sinus (principal); K08.89 Other specified disorders of teeth and supporting structures; F11.20 Opioid dependence, uncomplicated; F12.90 Cannabis use, unspecified, uncomplicated; F17.210 Nicotine dependence, cigarettes, uncomplicated; Z79.899 Other long term (current) drug therapy
CPT/HCPCS: 99282; 99283

== ENCOUNTER 2024-08-20 13:02 | Emergency (ER) | payer OTHER, SELFPAY ==
--- NOTE | ~2024-08-20 | XR_ITS ---
EXAMINATION: XR FOOT, RIGHT CLINICAL INFORMATION: hit 5th toe on doorway yesterday COMPARISON: None available. TECHNIQUE: AP, lateral, and oblique views of the right foot. FINDINGS: The bones and soft tissues are normal. No fracture. Alignment is anatomic. Joint spaces are maintained. XR/XR foot RT min 3V IMPRESSION: Normal right foot. Electronically signed by: Alex Kate MD 08/20/2024 03:00 PM EDT
[2024-08-20 13:05] VITALS: BP 135/98; PULSE 104; RESP 16; TEMP 36.9; O2SAT 98; BMI 31.3
--- NOTE | 2024-08-20 13:10 | ED.GENADULT ---
HPI - General Adult General Chief complaint: Extremity Injury, Lower Stated complaint: r foot swelling Time Seen by Provider: 08/20/24 14:24 Source: patient Mode of arrival: ambulatory Limitations: no limitations History of Present Illness HPI narrative: This is a 38-year-old male with a past medical history of fatty liver, anxiety, polysubstance abuse, lumbar disc herniation with myelopathy who presents for evaluation of right foot infection. Patient states that he stubbed his toe a few days ago. Patient states that he woke up the next day with increased swelling and redness to the top of his right foot. He states no fevers or chills. He states no paresthesias. He states no purulence. He states no other complaints. Related Data Home Medications ?Medication ?Instructions ?Recorded ?Confirmed buprenorphine 4 mg-naloxone 1 mg 0.25 film sublingual DAILY 08/02/22 08/02/22 sublingual film (Suboxone) Previous Rx's ?Medication ?Instructions ?Recorded cephalexin 500 mg capsule 500 mg PO QID 10 days #40 caps 04/21/24 doxycycline hyclate 100 mg tablet 100 mg PO BID #20 tabs 04/21/24 ibuprofen 600 mg tablet 600 mg PO Q6H PRN fever or pain 04/21/24 #30 tabs sulfamethoxazole 800 1 tab PO BID #19 tabs 06/01/24 mg-trimethoprim 160 mg tablet (Bactrim DS) bacitracin 500 unit/gram topical 1 appl topical QID #28 grams 07/16/24 ointment clotrimazole 1 % topical cream 1 appl topical TID #45 grams 07/16/24 (Lotrimin AF (clotrimazole)) chlorhexidine gluconate 0.12 % 15 ml buccal BID #118 mL 07/26/24 mouthwash (Peridex) penicillin V potassium 500 mg 500 mg PO BID 10 days #20 tabs 07/26/24 tablet cephalexin 500 mg capsule 500 mg PO QID 7 days #28 caps 08/20/24 doxycycline hyclate 100 mg capsule 100 mg PO BID 7 days #14 caps 08/20/24 Allergies Allergy/AdvReac Type Severity Reaction Status Date / Time pollen extracts [POLLEN] Allergy Unknown STUFFY NOSE Verified 08/20/24 13:13 SEAFOOD Allergy Unknown THROAT Uncoded 08/20/24 13:13 ITCHY - DIFF BREATHING Review of Systems Review of Systems: ROS as per HPI [facility] Past Medical History Medical History Lumbar disc herniation with myelopathy Fatty liver Surgical History H/O: knee surgery Hx of excision of epidermal inclusion cyst H/O oral surgery Family History Family History Father No problems noted. Mother CVA (cerebral vascular accident) Maternal Grandfather CVA (cerebral vascular accident) Maternal Grandmother CVA (cerebral vascular accident) Maternal Aunt Breast cancer Social History Social History Housing: Apartment Alcohol intake: never Patient Tobacco Use Status: Current everyday Tobacco user Tobacco use type: Cigarette Cigarette Packs Per Day: 1 e-Cigarette/Vaping Use: Never Used Second Hand Smoke Exposure: Yes Substance Use Type: Marijuana Advance Directives: No Do you have a plan to hurt others: No Plan Cognitive needs: No Hearing needs: No Vision needs: No Physical Exam ED Vital Signs: Vital Signs - 24 hr 08/20/24 13:05 Temperature 98.4 F Pulse Rate 104 H Respiratory Rate 16 Blood Pressure 135/98 H Pulse Oximetry 98 Oxygen Delivery Method Room Air BMI result Body Mass Index 31.3 Gen: NAD, AOx3 HEENT: NCAT, EOMI, normal conjunctiva CV: RRR, 2+ bilateral DP/PT pulses Pulm: CTAB, no increased work of breathing GI: Soft, NTND, no rebound, guarding or rigidity Neuro: Grossly non focal, sensation intact to light touch L4-S2 Skin: Warm, dry, erythema/warmth to right forefoot without purulence/induration/fluctuance, no open wounds that can be probed Course Course Course Narrative: This is a rapid medical exam performed by Albina Rodriguez NP: Additional HPI, ROS, PE not included below will be deferred to primary provider. Patient is a 38-year-old male presenting to the ED with complaint for right foot infection since Sunday. Previously treated for cellulitis of same foot. Also state he hit right 5th toe on doorway at work in area of infection. Arrives in walking boot. Plan: xray, labs Medical Decision Making Medical Decision Making [facility] Narrative: Differential diagnosis includes, but is not limited to cellulitis, sprain, fracture, dislocation. Patient is afebrile and hemodynamically stable on room air. Exam is consistent with cellulitis and I will treat it as such. The affected right lower extremity is neurovascularly intact. I reviewed and interpreted labs, which are notable leukocytosis with WBC 11.5 and CRP 1.89 (in keeping with cellulitis). AST 58 (previous 59) likely due to known fatty liver. I independently reviewed and interpreted patient's x-ray of the right foot, which demonstrates no acute fracture, dislocation or free air. On re-examination, patient is well-appearing and in no acute distress. ??There is no indication for further emergent evaluation in this otherwise well-appearing patient as above. ?Patient is provided written and verbal instructions, educational materials, prescription for cephalexin and doxycycline, recommendations for outpatient follow-up, strict return precautions and teach back is performed. ?Patient states understanding and agreement with plan of care. ?Patient is discharged home in stable and improved condition. Admission/Observation Consideration of admission/observation: Escalation of care including admission/observation considered Lab Data [facility] Lab Attestation statement: I reviewed the patient's lab results. 08/20/24 13:33 08/20/24 13:33 Labs: Lab Results 08/20/24 Range/Units 13:33 WBC 11.5 H (4.8-10.8) X10*3/uL RBC 5.13 (4.60-5.80) X10*6/uL Hgb 14.5 (14.0-18.0) g/dl Hct 43.3 (42.0-52.0) % MCV 84.4 (80.0-98.0) fL MCH 28.3 (27.0-33.0) pg MCHC 33.5 (31.0-36.0) g/dl RDW 15.1 (11.0-16.0) % Plt Count 273 (160-400) X10*3/uL MPV 10.4 (9.4-12.4) fL Immature Gran % (Auto) 0.3 (0.0-0.4) % Neut % (Auto) 64.4 (45-73) % Lymph % (Auto) 25.6 (20-40) % [place] % (Auto) 7.8 (2-11) % Eos % (Auto) 1.4 (0-4) % Baso % (Auto) 0.5 (0-2) % Lymph # (Auto) 3.0 (1.2-4.9) X10*3/uL [place] # (Auto) 0.9 (0.1-1.2) X10*3/uL Eos # (Auto) 0.2 (0.0-0.4) X10*3/uL Baso # (Auto) 0.1 (0.0-0.2) X10*3/uL Abs Immat Gran (auto) 0.03 (0.00-0.03) X10*3/uL Absolute Neuts (auto) 7.4 (2.0-8.3) x10*3/uL Absolute Nucleated RBC 0.000 (0.0-0.012) X10*3/uL Nucleated RBC % (auto) 0.0 (0.0-0.2) /100WBC Hold Purple Top SEE NOTE Sodium 143 (135-145) mmol/L Potassium 3.8 (3.3-5.1) mmol/L Chloride 107 (96-108) mmol/L Carbon Dioxide 26 (22-29) mmol/L Anion Gap 14 (12-20) BUN 9 (9-16) mg/dL Creatinine 0.88 (0.5-1.4) mg/dL Estim Creat Clear Calc 122.2 Estimated GFR > 60 Random Glucose 105 (60-115) mg/dL Calcium 9.6 (8.4-10.2) mg/dL Total Bilirubin 0.9 (0.0-1.0) mg/dL AST 30 (5-37) U/L ALT 58 H (0-40) U/L Alkaline Phosphatase 83 (39-117) U/L C-Reactive Protein 1.89 H (< or = 0.50) mg/dL Total Protein 8.4 H (6.5-8.0) g/dL Albumin 4.9 (3.5-5.0) g/dL Independent Interpretation I performed an independent interpretation of an: Plain X-Ray Radiology Impression Discussion of test interpretation with radiology: I have reviewed the radiologist's reading. Radiologist Impression: XR/XR foot RT min 3V IMPRESSION: Normal right foot. Electronically signed by: Alex Kate MD 08/20/2024 03:00 PM EDT RP Dictated By: Alex Kate MD Signed By: <Electronically signed by Alex Kate MD in OV> 08/20/24 1500 Discharge Plan Discharge Clinical Impression: Cellulitis of foot, right Patient Disposition: Home, Self-Care Instructions: Cellulitis (ED) Additional Instructions: You were seen and evaluated in the emergency room. You are found to have an infection of the skin of your right foot. You are given a prescription for antibiotics. Please take as directed and until completed. Please be sure to practice good hygiene by washing your feet with soap and water every day. Please follow-up with your primary care doctor in the next 5-7 days. Please return to the emergency room with any new concerns or injuries. Prescriptions: New doxycycline hyclate 100 mg capsule 100 mg PO BID 7 Days Qty: 14 0RF cephalexin 500 mg capsule 500 mg PO QID 7 Days Qty: 28 0RF No Action cephalexin 500 mg capsule 500 mg PO QID 10 Days Qty: 40 0RF ibuprofen 600 mg tablet 600 mg PO Q6H PRN (Reason: fever or pain) Qty: 30 0RF doxycycline hyclate 100 mg tablet 100 mg PO BID Qty: 20 0RF sulfamethoxazole-trimethoprim [Bactrim DS] 800-160 mg tablet 1 tab PO BID Qty: 19 0RF bacitracin 500 unit/gram ointment 1 appl topical QID Qty: 28 0RF clotrimazole [Lotrimin AF (clotrimazole)] 1 % cream 1 appl topical TID Qty: 45 0RF penicillin V potassium 500 mg tablet 500 mg PO BID 10 Days Qty: 20 0RF chlorhexidine gluconate [Peridex] 0.12 % mouthwash 15 ml buccal BID Qty: 118 0RF buprenorphine-naloxone [Suboxone] 4-1 mg film 0.25 film sublingual DAILY Patient Comments: clean Slate Print Language: Ethiopian
[2024-08-20 13:39] LABS: MANUAL DIFF FLAG NO
[2024-08-20 13:44] LABS: Basophils Absolute Auto 0.1 X10*3/uL (0.0-0.2); Basophils Percent Auto 0.5 % (0-2); Eosinophils Absolute Auto 0.2 X10*3/uL (0.0-0.4); Eosinophils Percent Auto 1.4 % (0-4); Hematocrit 43.3 % (42.0-52.0); Hemoglobin 14.5 g/dl (14.0-18.0); Imm Gran Abs Auto 0.03 X10*3/uL (0.00-0.03); Imm Gran Pct Auto 0.3 % (0.0-0.4); Lymphocytes Percent Auto 25.6 % (20-40); Mean Corpuscular HGB Conc 33.5 g/dl (31.0-36.0); Mean Corpuscular Hemoglobin 28.3 pg (27.0-33.0); Mean Corpuscular Volume 84.4 fL (80.0-98.0); Mean Platelet Volume 10.4 fL (9.4-12.4); Monocytes Absolute Auto 0.9 X10*3/uL (0.1-1.2); Monocytes Percent Auto 7.8 % (2-11); Neutrophils Absolute Auto 7.4 x10*3/uL (2.0-8.3); Neutrophils Percent Auto 64.4 % (45-73); Platelet Count 273 X10*3/uL (160-400); Red Blood Count 5.13 X10*6/uL (4.60-5.80); Red Cell Distribution Width 15.1 % (11.0-16.0); White Blood Count 11.5 X10*3/uL (4.8-10.8)
[2024-08-20 13:59] LABS: Alanine Aminotransferase 58 U/L (0-40); Albumin Level 4.9 g/dL (3.5-5.0); Alkaline Phosphatase 83 U/L (39-117); Anion Gap 14 (12-20); Aspartate Amino Transferase 30 U/L (5-37); Bilirubin Total 0.9 mg/dL (0.0-1.0); Blood Urea Nitrogen 9 mg/dL (9-16); C Reactive Protein 1.89 mg/dL (< or = 0.50); Calcium 9.6 mg/dL (8.4-10.2); Carbon Dioxide 26 mmol/L (22-29); Chloride 107 mmol/L (96-108); Creatinine Clr Calc Pharmacy 122.2; Estimated Glomerular Filt Rate > 60; Glucose Random 105 mg/dL (60-115); Potassium 3.8 mmol/L (3.3-5.1); Sodium 143 mmol/L (135-145); Total Protein 8.4 g/dL (6.5-8.0)
[2024-08-20 15:05] VITALS: BP 119/74; PULSE 95; RESP 16; TEMP 36.9; O2SAT 100
[2024-08-20 15:05] LABS: Erythrocyte Sedimentation Rate 10 MM/HR (0-15)
[2024-08-20 15:15] VITALS: BP 119/74; PULSE 95; RESP 16; TEMP 36.9; O2SAT 100
== END 2024-08-20 15:15 | disposition home or self-care (01) ==
PROVIDERS: Registered Nurse Emergency; Emergency Provider Emergency Medicine
DX: L03.115 Cellulitis of right lower limb (principal); M79.674 Pain in right toe(s)
CPT/HCPCS: 36415; 73630; 80053; 85025; 85652; 86140; 99283

== ENCOUNTER 2025-01-12 11:46 | Emergency (ER) | payer OTHER, SELFPAY ==
[2025-01-12 12:57] VITALS: BP 162/108; PULSE 74; RESP 16; TEMP 36.1; O2SAT 99; BMI 32.7
--- NOTE | 2025-01-12 13:00 | ED_ITS ---
HPI - Dental/Oral General Chief complaint: Dental/Oral Stated complaint: Tooth infection Time Seen by Provider: 01/12/25 13:00 Source: patient Mode of arrival: ambulatory Limitations: no limitations History of Present Illness ED Provider: PHUC ABDI PA-C HPI Narrative: 39 year old male with pmhx significant for OTTO, current tobacco smoker, presents to the ED today for evaluation of dental pain x2-3 days. Pain localized to left lower tooth. No drainage from the area. He has been taking Motrin 600 mg with relief of pain. Denies fever/chills, headache, neck pain/swelling, or difficulty swallowing. He has an appointment with his dentist on 01/29/25. Related Data Home Medications ?Medication ?Instructions ?Recorded ?Confirmed buprenorphine 4 mg-naloxone 1 mg 0.25 film sublingual DAILY 08/02/22 08/02/22 sublingual film (Suboxone) Previous Rx's ?Medication ?Instructions ?Recorded cephalexin 500 mg capsule 500 mg PO QID 10 days #40 caps 04/21/24 doxycycline hyclate 100 mg tablet 100 mg PO BID #20 tabs 04/21/24 ibuprofen 600 mg tablet 600 mg PO Q6H PRN fever or pain 04/21/24 #30 tabs sulfamethoxazole 800 1 tab PO BID #19 tabs 06/01/24 mg-trimethoprim 160 mg tablet (Bactrim DS) bacitracin 500 unit/gram topical 1 appl topical QID #28 grams 07/16/24 ointment clotrimazole 1 % topical cream 1 appl topical TID #45 grams 07/16/24 (Lotrimin AF (clotrimazole)) chlorhexidine gluconate 0.12 % 15 ml buccal BID #118 mL 07/26/24 mouthwash (Peridex) penicillin V potassium 500 mg 500 mg PO BID 10 days #20 tabs 07/26/24 tablet cephalexin 500 mg capsule 500 mg PO QID 7 days #28 caps 08/20/24 doxycycline hyclate 100 mg capsule 100 mg PO BID 7 days #14 caps 08/20/24 amoxicillin 875 mg-potassium 1 tab PO Q12H 7 days #14 tabs 01/12/25 clavulanate 125 mg tablet ibuprofen 600 mg tablet 600 mg PO Q6-8H PRN pain (scale 01/12/25 score 4-6) #30 tabs Allergies Allergy/AdvReac Type Severity Reaction Status Date / Time pollen extracts [POLLEN] Allergy Unknown STUFFY NOSE Verified 01/12/25 12:59 SEAFOOD Allergy Unknown THROAT Uncoded 08/20/24 13:13 ITCHY - DIFF BREATHING Review of Systems Review of Systems: Constitutional: No fever, chills, fatigue, night sweats, weight changes ENT/Mouth: No ear pain, hearing loss, nasal congestion, sinus pain, rhinorrhea, sore throat, +dental pain Eyes: No eye pain, swelling, redness, vision changes, discharge Cardio: No chest pain, palpitations, CONNOLLY, orthopnea, peripheral edema Pulm: No SOB, cough, sputum, wheezing, dyspnea, hemoptysis GI: No nausea, vomiting, hematemesis, abdominal pain, diarrhea, constipation, hematochezia, melena : No irregular bleeding, dysuria, frequency, urgency, hesitancy, hematuria, flank pain, urinary flow changes, urinary incontinence or retention MSK: No back pain, neck pain, joint pain, myalgias Skin: No lesions, rashes Neuro: No weakness, numbness, paresthesias, LOC, dizziness, headache Psych: No anxiety/panic, depression, SI/HI, AH/VH All other systems reviewed and are negative. [facility] Past Medical History Attestation statement: The following information was validated with the patient. Source: old records reviewed and nursing notes reviewed Medical History Lumbar disc herniation with myelopathy Fatty liver Surgical History H/O: knee surgery Hx of excision of epidermal inclusion cyst H/O oral surgery Family History Family History Father No problems noted. Mother CVA (cerebral vascular accident) Maternal Grandfather CVA (cerebral vascular accident) Maternal Grandmother CVA (cerebral vascular accident) Maternal Aunt Breast cancer Social History Social History Housing: Apartment Alcohol intake: never Patient Tobacco Use Status: Current everyday Tobacco user Tobacco use type: Cigarette Cigarette Packs Per Day: 1 e-Cigarette/Vaping Use: Never Used Second Hand Smoke Exposure: Yes Substance Use Type: Marijuana Advance Directives: No Advance Directives Information Provided: No Cognitive needs: No Hearing needs: No Vision needs: No Physical Exam Vital Signs: Vital Signs: Last Vital Signs Temp 97 F 01/12/25 13:01 Pulse 74 01/12/25 13:01 Resp 16 01/12/25 13:01 BP 162/108 H 01/12/25 13:01 Pulse Ox 99 01/12/25 13:01 O2 Del Method Room Air 01/12/25 13:01 BMI result Body Mass Index 32.7 hypertensive, vitals are stable General: Well appearing, in no acute distress. Skin: Warm, dry, intact. No rashes or lesions. Head: Normocephalic, atraumatic. EENT: Hearing is intact b/l. Conjunctiva clear. PERRLA. EOM intact. Moist mucous membranes.? + No facial edema. Tongue and lips wnl + multiple dental caries and poor dentit ion. left lower #21-22 with localized periapical swelling to the buccal ginginva. No pointing. No active bleeding/ discharge. TTP. No palpable fluctuance. + No edema to buccal mucosa + Posterior oropharynx without erythema/ edema. Uvula midline. Controlling secretions and speaking in complete sentences + No submandublar, submental, cervical L AD Cardiac: Chest wall symmetric. RRR Lungs: Normal respiratory effort without accessory muscle use. CTA bilaterally Ext: Upper and lower extremities atraumatic, without tenderness, deformity, swelling or erythema Neuro: AOx3. Normal speech. Ambulating with steady gait. Course Course Course Narrative: Patient noted to have dental infection. There is no evidence of abscess that warrants drainage at this time. Will treat patient's pain and patient will be discharged home on augmentin to ensure there is no worsening infection for follow-up with dentist. Patient advised to follow up with dentist this week. A referral has been provided. Patient has remained stable throughout ED visit today. I discussed worrisome signs and symptoms and when to return to the ED. All questions answered at this time. Patient is agreeable with disposition and stable for discharge. Medical Decision Making Medical Decision Making MDM Narrative: 39 year old male with pmhx significant for OTTO, current tobacco smoker, presents to the ED today for evaluation of dental pain x2-3 days. patient hypertensive, likely d/t pain. asymptomatic. vitals are otherwise stable. afebrile. on exam, no facial edema. Tongue and lips wnl, multiple dental caries and poor dentition. left lower #21-22 with localized periapical swelling to the buccal ginginva. No pointing. No active bleeding/ discharge. TTP. No palpable fluctuance. no edema to buccal mucosa. posterior oropharynx without erythema/edema. Uvula midline. Controlling secretions and speaking in complete sentences, No submandublar, submental, cervical LAD, no anterior neck swelling. Differential includes dental/ periapical abscess/infection, apthous stomatitis. Unlikely mono, herpes, sialadenitis, sialolithiasis, [employer]ERIALS COORDINATOR, retropharyngeal abscess, deep neck infection, osteomyelitis, facial cellulitis/ abscess, lymphoma, ludwigs angina. Plan for pain control and discharge home with antibiotics and dentist follow up. Differential Diagnosis Differential Diagnoses: The differential diagnosis associated with the presentation includes as above. Admission/Observation Not indicated. External Record Review External record reviewed: Inpatient record Tests considered The following testing was considered but not selected: I considered obtaining a CT of the soft tissues neck however these is no evidence of ludwigs angina or concern for deep tissue infection. Not warranted at this time. Prescription Management I considered prescription management with: Pain Medication and Antibiotic (Augmentin) Social Determinants Patient?s care significantly limited by Social Determinants of Health including: Other Social Determinant of Health Critical Care Time Critical Care Time Critical Care Time: No Discharge Plan Discharge Clinical Impression: Dental infection Patient Disposition: Home, Self-Care Instructions: Dental Abscess (ED) Additional Instructions: You were evaluated in ED today for dental pain. You have a dental infection. Augmentin is an antibiotic that has been sent to your pharmacy for treatment. Take this as prescribed and do not skip any doses. Take this to completion or the infection may persist or worsen. On Augmentin, softer bowel movements are to be expected. Call your provider if you move your bowels more than 4 times a day, your bowel movements are almost all liquid, or you get a rash.? Take tylenol/ motrin at home as needed for pain. YOU NEED TO FOLLOW UP WITH A DENTIST. You have been provided with a referral to [facility]. They are currently taking new clients. Call them to make an appointment. They will not call you. Return with new or worsening symptoms. In the case of an emergency call [facility]: [phone] [facility] [id number] Prescriptions: New amoxicillin-pot clavulanate 875-125 mg tablet 1 tab PO Q12H 7 Days Qty: 14 0RF ibuprofen 600 mg tablet 600 mg PO Q6-8H PRN (Reason: pain (scale score 4-6)) Qty: 30 0RF No Action cephalexin 500 mg capsule 500 mg PO QID 10 Days Qty: 40 0RF ibuprofen 600 mg tablet 600 mg PO Q6H PRN (Reason: fever or pain) Qty: 30 0RF doxycycline hyclate 100 mg tablet 100 mg PO BID Qty: 20 0RF sulfamethoxazole-trimethoprim [Bactrim DS] 800-160 mg tablet 1 tab PO BID Qty: 19 0RF doxycycline hyclate 100 mg capsule 100 mg PO BID 7 Days Qty: 14 0RF cephalexin 500 mg capsule 500 mg PO QID 7 Days Qty: 28 0RF bacitracin 500 unit/gram ointment 1 appl topical QID Qty: 28 0RF clotrimazole [Lotrimin AF (clotrimazole)] 1 % cream 1 appl topical TID Qty: 45 0RF penicillin V potassium 500 mg tablet 500 mg PO BID 10 Days Qty: 20 0RF chlorhexidine gluconate [Peridex] 0.12 % mouthwash 15 ml buccal BID Qty: 118 0RF buprenorphine-naloxone [Suboxone] 4-1 mg film 0.25 film sublingual DAILY Patient Comments: clean Slate Interventions: ED Discharge Assessment Last Done: 01/12/25 13:01 Discharge Date/Time: 01/12/25 13:14 Print Language: Mauritanian
[2025-01-12 13:01] VITALS: BP 162/108; PULSE 74; RESP 16; TEMP 36.1; O2SAT 99
== END 2025-01-12 13:14 | disposition home or self-care (01) ==
LOC: HO.ED 13:11
PROVIDERS: Emergency Provider Emergency Medicine
DX: K04.7 Periapical abscess without sinus (principal)
CPT/HCPCS: 99282; 99283